=== PATIENT | male | born 1965 | race Hispanic/Latino ===

== ENCOUNTER 2022-02-21 15:41 | Emergency (ER) | payer SELFPAY ==
[2022-02-21 17:13] LABS: Basophils % (Auto) 0.7 % (0.0-1.8); Eosinophils # (Auto) 0.1 K/mm3 (0.0-0.4); Eosinophils % (Auto) 1.6 % (0.0-4.3); Hematocrit 39.8 % (35.5-45.6); Hemoglobin 13.7 gm/dl (11.8-15.2); Lymphocytes # (Auto) 1.7 K/mm3 (1.2-5.4); Lymphocytes % (Auto) 28.7 % (13.4-35.0); Mean Corpuscular HGB Conc 34 % (32-34); Mean Corpuscular Volume 96 fl (84-94); Monocytes # (Auto) 0.6 K/mm3 (0.0-0.8); Monocytes % (Auto) 10.1 % (0.0-7.3); Platelet Count 117 K/mm3 (140-440); Red Blood Count 4.15 M/mm3 (3.65-5.03); Red Cell Distribution Width 13.9 % (13.2-15.2)
[2022-02-21 17:28] LABS: Alanine Aminotransferase 68 units/L (7-56); Albumin 3.7 g/dL (3.9-5); BUN/Creatinine Ratio 10; Blood Urea Nitrogen 8 mg/dL (9-20); Hemolysis Index 5
[2022-02-21] MEDS ORDERED: POTASSIUM CHLORIDE ER 20 MEQ TAB PO ONE (23:20)
--- NOTE | 2022-02-21 23:21 | Emergency Department Report ---
ED Psych HPI - General Chief Complaint: Psych Stated Complaint: SUICIDAL THOUGHTS/HOMELESS Time Seen by Provider: 02/21/22 16:27 Source: EMS Mode of arrival: Stretcher - History of Present Illness Initial Comments: Patient is a 57-year-old male presenting to the emergency department with complaint of suicidal ideations. States he has been on the street and uses crack cocaine. He reports feelings of worthlessness and states he had plan to jump off of a bridge or cut himself. - Related Data Allergies Allergy/AdvReac Type Severity Reaction Status Date / Time No Known Allergies Allergy Unverified 02/21/22 15:42 ED Review of Systems ROS: Stated complaint: SUICIDAL THOUGHTS/HOMELESS Other details as noted in HPI Comment: All other systems reviewed and negative Constitutional: denies: chills, fever Respiratory: denies: cough, shortness of breath, wheezing Cardiovascular: denies: chest pain, palpitations Gastrointestinal: denies: abdominal pain, nausea, diarrhea Genitourinary: denies: urgency, dysuria Musculoskeletal: denies: back pain, joint swelling, arthralgia Skin: denies: rash, lesions Neurological: denies: headache, weakness, paresthesias Psychiatric: depression, suicidal thoughts ED Past Medical Hx - Past Medical History Previous Medical History?: No - Surgical History Past Surgical History?: No ED Physical Exam - General Limitations: No Limitations General appearance: alert, in no apparent distress - Head Head exam: Present: normocephalic - Neck Neck exam: Present: normal inspection - Respiratory Respiratory exam: Present: normal lung sounds bilaterally. Absent: respiratory distress - Cardiovascular Cardiovascular Exam: Present: regular rate, normal rhythm. Absent: systolic murmur, diastolic murmur, rubs, gallop - GI/Abdominal GI/Abdominal exam: Present: soft. Absent: distended, tenderness - Rectal Rectal exam: Present: deferred - Neurological Exam Neurological exam: Present: alert, oriented X3 - Psychiatric Psychiatric exam: Present: normal affect, normal mood, suicidal ideation - Skin Skin exam: Present: warm, dry, intact, normal color ED Course Vital Signs 02/21/22 02/21/22 15:42 20:09 Temperature 98.2 F 98.9 F Pulse Rate 70 74 Respiratory 17 16 Rate Blood Pressure 110/60 94/53 [Left] O2 Sat by Pulse 98 97 Oximetry ED Medical Decision Making - Lab Data Result diagrams: 02/21/22 16:39 02/21/22 16:39 - Medical Decision Making Labs reviewed. 2013 on file. Patient medically cleared and awaiting mental health evaluation. Critical care attestation.: If time is entered above; I have spent that time in minutes in the direct care of this critically ill patient, excluding procedure time. ED Disposition Clinical Impression: Suicidal ideation Disposition: 30 STILL A PATIENT Is pt being admited?: No Condition: Stable Referrals: PRIMARY CARE, [Primary Care Provider] - 3-5 Days
[2022-02-22 01:58] LABS: Amphetamine Screen,Urine PRESUMPTIVE NEGATIVE; Benzodiazepines Screen,Urine PRESUMPTIVE NEGATIVE; Cannabinoid Screen,Urine PRESUMPTIVE NEGATIVE; Cocaine Screen,Urine PRESUMPTIVE NEGATIVE; Methadone Screen,Urine PRESUMPTIVE NEGATIVE; Opiate Screen,Urine PRESUMPTIVE NEGATIVE
[2022-02-22 02:06] LABS: Bilirubin,Urine Negative (Negative); Color,Urine Yellow (Yellow)
[2022-02-22 02:07] LABS: Blood,Urine Negative (Negative); Protein,Urine <15 mg/dL mg/dL (Negative)
[2022-02-22 02:16] LABS: Calcium Oxalate Crystals,Urine FEW; Mucus,Urine 2+ /HPF
[2022-02-22 02:17] LABS: WBC,Urine < 1.0 /HPF (0.0-6.0)
--- NOTE | 2022-02-22 10:37 | Consultation ---
History of Present Illness - Reason for Consult Consult date: 02/22/22 Reason for consult: mental health evaluation - History of Present Psychiatric Illness The patient is a 57 year old male with history of cocaine use disorder who presents to the ED with suicidal ideation. The patient is calm, alert and oriented x3. The patient reports ongoing suicidal ideation x 2 months " I'm tired of doing crack." The patient reports daily crack use for the past 6 months; spends about $100 a day. He states he has never been to rehab. He endorses suicidal ideation with a plan to jump off of a bridge. He denies hallucinations. PAST PSYCHIATRIC HISTORY: Diagnoses:cocaine use disorder, severe Suicide attempts or Self-harm behavior:Denies Prior psychiatric hospitalizations: Denies Substance Abuse history: Crack Cocaine Previous psychiatric medications tried:None Outpatient treatment:Unknown PAST MEDICAL HISTORY: None reported or document Family Psychiatric History: None reported or documented SOCIAL HISTORY Marital Status: single Living Arrangements: Homeless Employment Status:unemployed Access to guns/weapons: Denies Education:some 10th grade History of Abuse: Denies Legal History: Denies REVIEW OF SYSTEMS Constitutional: Negative for weight loss ENT: Negative for stridor Respiratory: Negative for cough or hemoptysis All other systems reviewed and are negative MENTAL STATUS EXAMINATION General Appearance and Behavior: Age appropriate, wearing appropriate clothes, cooperative, polite with questioning, good eye contact, calm, polite Cooperation: cooperative Psychomotor Behavior: Psychomotor normal Mood: Depressed Affect and affective range: Congruent with stated mood Thought Process: Goal directed Thought Content:suicidal Speech: Normal volume, Regular rate and rhythm Suicidal Ideation: Yes Homicidal Ideation: Denies Hallucination: Denies Delusions: None Impulse Control: limited Insight and Judgment: Limited and poor judgment Memory: intact Attention: attentive Orientation: Alert and oriented Diagnoses: (1) Major depressive disorder (2)Cocaine use disorder, severe Treatment Plan 1013 Continue home meds Sertraline 25mg po daily Trazodone 50mg po QHS PSYCHOTHERAPY: Supportive psychotherapy provided MEDICAL: Per primary team DELIRIUM PRECAUTIONS: Please re-orient patient frequently, keep lights on during the day, and minimize benzodiazepines and opiates as these medications could worsen patient's confusion. PATENT LITIGATION ASSOCIATE: Per medical team DISPOSITION: Recommend acute psychiatric inpatient treatment. Will follow. Thank you for the consult. Case staffed with Dr. [place] Medications and Allergies Medications and Allergies Allergies Allergy/AdvReac Type Severity Reaction Status Date / Time No Known Allergies Allergy Unverified 02/21/22 15:42 Mental Status Exam - Vital signs Last Vital Signs Temp 98.2 F 02/22/22 10:16 Pulse 90 02/22/22 10:16 Resp 20 02/22/22 10:16 BP 114/60 02/22/22 10:16 Pulse Ox 100 02/22/22 10:16 Results Result Diagrams: 02/21/22 16:39 02/21/22 16:39 Abnormal lab results 02/21/22 02/21/22 02/21/22 Range/Units 16:39 16:39 16:39 MCV 96 H (84-94) fl MCH 33 H (28-32) pg Plt Count 117 L (140-440) K/mm3 [place] % (Auto) 10.1 H (0.0-7.3) % Potassium 3.1 L (3.6-5.0) mmol/L Chloride 111.3 H (98-107) mmol/L Carbon Dioxide 17 L (22-30) mmol/L BUN 8 L (9-20) mg/dL AST 62 H (5-40) units/L ALT 68 H (7-56) units/L Alkaline Phosphatase 170 H (35-129) units/L Total Protein 6.0 L (6.3-8.2) g/dL Albumin 3.7 L (3.9-5) g/dL Salicylates < 0.3 L (2.8-20.0) mg/dL Acetaminophen (10.0-30.0) ug/mL 02/21/22 Range/Units 16:39 MCV (84-94) fl MCH (28-32) pg Plt Count (140-440) K/mm3 [place] % (Auto) (0.0-7.3) % Potassium (3.6-5.0) mmol/L Chloride (98-107) mmol/L Carbon Dioxide (22-30) mmol/L BUN (9-20) mg/dL AST (5-40) units/L ALT (7-56) units/L Alkaline Phosphatase (35-129) units/L Total Protein (6.3-8.2) g/dL Albumin (3.9-5) g/dL Salicylates (2.8-20.0) mg/dL Acetaminophen 5.0 L (10.0-30.0) ug/mL All other labs normal.
[2022-02-22] MEDS ORDERED: SERTRALINE 25 MG TAB PO SCH (12:00)
--- NOTE | 2022-02-22 15:49 | Emergency Department Report ---
Blank Doc - Documentation Documentation: I have evaluated the patient and rounded on the patient. Patient is still on a 1013. He has suicidal ideation
[2022-02-22] MEDS ORDERED: traZODone 50 MG TAB PO SCH (22:00)
[2022-02-23 08:09] VITALS: BP 128/66
== END 2022-02-23 09:30 | disposition still patient (30) ==
LOC: ED 15:41 → EEVIPCON 15:41 → ED 02-23 09:30
DX: R45.851 Suicidal ideations (principal); Z20.822 Contact with and (suspected) exposure to COVID-19; R94.6 Abnormal results of thyroid function studies; Z79.899 Other long term (current) drug therapy
CPT/HCPCS: 36415; 80053; 80307; 81001; 84443; 85025; 99284; U0003; 80320; G0480